=== PATIENT | male | born 1960 | race Caucasian/White ===

== ENCOUNTER 2024-04-28 14:27 | Inpatient (IN) | payer OTHER, SELFPAY ==
[2024-04-28] VITALS (24 sets, daily range): BP systolic 113–165; BP diastolic 49–86; PULSE 90–125; RESP 9–31; TEMP 36.8–39.5; O2SAT 90–100
--- NOTE | ~2024-04-28 | CT_ITS ---
CT abdomen pelvis w con Ordering provider: Pablo Cleary MD History: 63 years Male with . LLQ pain, Febrile . Comparison: None. Technique: CT abdomen and pelvis with IV and without oral contrast. Automated exposure control and it erative reconstruction technique were employed. The dose-length product was 380.56 mGy-cm. 100 mL Omn ipaque 350 was given IV. Findings: VISUALIZED LOWER CHEST: Dependent atelectatic changes. UPPER ABDOMINAL ORGANS: Liver: Fat infiltration. Mild hepatomegaly. Gallbladder: Possible cholelithiasis. Ultrasound evaluation advised. Spleen: Mild splenomegaly. Stomach/duodenum: Sliding hiatus hernia. Pancreas: Area of calcification is seen which is most likely vascular. Adrenals: Normal. Kidneys: Normal. PELVIC ORGANS: The bladder is normal. BOWEL AND MESENTERY: Colon: Diverticulitis seen at the junction of the descending colon with the sigmoid colon. No free ai r or collection is seen. Normal appendix. Small Bowel: Normal. No obstruction. Peritoneum/mesentery: No free air or free fluid. No mesenteric lymphadenopathy. RETROPERITONEUM: Mild atheromatous disease of the abdominal aorta. No retroperitoneal lymphadenopat hy. MUSCULOSKELETAL: Superficial soft tissues: The superficial soft tissues are normal. Bones: Age appropriate degenerative changes of the spine. IMPRESSION: 1. Diverticulitis at the junction of the descending colon with the sigmoid colon. 2. Sliding hiatus hernia. 3. Possible Cholelithiasis. Ultrasound evaluation advised. 4. Hepatomegaly with fat infiltration. Mild splenomegaly. Reviewed, dictated and finalized at location A. IMPRESSION: 1. Diverticulitis at the junction of the descending colon with the sigmoid col on. 2. Sliding hiatus hernia. 3. Possible Cholelithiasis. Ultrasound evaluation advised. 4. Hepatomegaly with fat infiltration. Mild splenomegaly.
--- NOTE | ~2024-04-28 | MR_ITS ---
EXAMINATION: MR MRCP wo/w con/w 3D wo ind DATE: 04/30/2024 14:04 INDICATION: Cholelithiasis. Bile duct dilatation. TECHNIQUE: Magnetic resonance imaging (MRI) of the abdomen was performed without and with 20 mL Multi Wen intravenous contrast. Sequences included coronal T2-weighted FS FSE, coronal T2-weighted FSE, a xial T1-weighted LAVA, coronal FS FIESTA, axial dual-echo T1-weighted SPGR, coronal lava-FLEX, sagitt al T2-weighted FSE, axial T2-weighted FSE, and axial DWI. Thick-slab T2-weighted FSE images were obta ined for magnetic resonance cholangiopancreatography (MRCP). Maximum intensity projection 3-D reconst ructions of the volumetric data were created by the technologist. Postcontrast sequences included cor onal LAVA-flex and time course of axial T1-weighted LAVA. COMPARISON: Abdomen ultrasound 04/29/2024, CT abdomen and pelvis 04/28/2024, 12/25/16 FINDINGS: ABDOMEN MRI: The visualized portions of the lung bases demonstrate bilateral patchy airspace opacitie s and smooth septal thickening. There is a small sliding hiatal hernia. The liver is normal. There is chronic mild splenomegaly, which may be secondary to obesity. The gallbladder, pancreas, adrenal gla nds, and kidneys are normal. There are no dilated loops of bowel. There are no pathologically enlarge d lymph nodes. There is no free intraperitoneal fluid. ABDOMEN MRCP: The common duct is normal and measures 6 mm. No choledocholithiasis. IMPRESSION: 1. Normal biliary tree. 2. Bilateral lung disease, worsened from 04/28/2024, likely pulmonary edema. Reviewed, dictated and finalized at location A.
--- NOTE | ~2024-04-28 | XR_ITS ---
EXAMINATION: XR chest 1V portable DATE: 04/30/2024 19:23 INDICATION: Shortness of breath TECHNIQUE: frontal view of the chest was obtained. COMPARISON: None FINDINGS: Diffuse increased interstitial pattern in the bilateral mid and lower lung zones with multiple periph eral Jessica B-lines at the lateral right mid to lower lung consistent with mild pulmonary edema. Numb er bandlike discoid atelectasis at the right midlung zone. No pleural effusion or pneumothorax. The c ardiomediastinal silhouette is within normal limits for AP technique. IMPRESSION: 1. Interstitial opacities in the bilateral mid and lower lung zones in favor mild pulmonary edema ove r pneumonia. Reviewed, dictated and finalized at location A. IMPRESSION: 1. Interstitial opacities in the bilateral mid and lower lung zones in favor mi ld pulmonary edema over pneumonia.
--- NOTE | ~2024-04-28 | US_ITS ---
EXAMINATION: US abdomen limited DATE: 04/29/2024 12:12 INDICATION: Cholelithiasis. TECHNIQUE: Multiple grayscale and Doppler ultrasound images of the abdomen were obtained. COMPARISON: CT abdomen and pelvis 04/28/2024 FINDINGS: The visualized portions of the head, body, and tail of the pancreas are normal. The liver i s normal without focal lesion. There is normal flow in main portal vein. The gallbladder is distended . No gallstones or gallbladder wall thickening. The common duct is dilated to 10 mm. IMPRESSION: 1. Gallbladder distention and common duct dilatation. No obstructing stone or mass identified. Consid er MRCP. Reviewed, dictated and finalized at location A. IMPRESSION: 1. Gallbladder distention and common duct dilatation. No obstructing stone or m ass identified. Consider MRCP.
[2024-04-28 14:44] LABS: Hematocrit 54.8 % (42.0-52.0); Hemoglobin 16.8 g/dL (14.0-18.0); Mean Corpuscular HGB Conc 30.7 g/dl (32-36); Mean Corpuscular Hemoglobin 25.4 pg (26-34); Mean Corpuscular Volume 82.9 fl (80-100); Mean Platelet Volume 9.6 fl (7.4-10.4); Platelet Count Result 128 k/mm3 (150-375); Red Blood Count 6.61 M/mm3 (4.6-6.20); Red Cell Distribution Width 24.1 % (11.5-14.5); White Blood Count 7.1 K/mm3 (4.5-10.0)
[2024-04-28 14:54] LABS: Alanine Aminotransferase 30 U/L (6-50); Albumin Level 4.8 g/dL (3.5-5.1); Alkaline Phosphatase 45 U/L (38-126); Anion Gap 12 mmol/L (4-12); Aspartate Amino Transferase 30 U/L (17-59); Bilirubin,Total 0.8 mg/dL (0.2-1.3); Blood Urea Nitrogen 38 mg/dL (9-20); Carbon Dioxide 28 mmol/L (22-30); Chloride 99 mmol/L (98-107); Estimated CRCL calculation 54 ml/min; Estimated Glomerular Filt Rate > 60; Glucose 103 mg/dL (65-110); Lipase 60 U/L (23-300); Potassium 4.3 mmol/L (3.4-5.0); Sodium 139 mmol/L (137-145)
[2024-04-28 15:13] LABS: Band Neutrophils Percent 6 % (0-6); Basophils Absolute Manual 0.07 K/mm3 (0.0-0.1); Basophils Percent Manual 1 % (0-1); Lymphocytes Absolute Manual 0.14 K/mm3 (1.1-4.5); Monocytes Absolute Manual 0.35 K/mm3 (0.1-0.90); Monocytes Percent Manual 5 % (3-9); Neutrophils Absolute Manual 6.53 K/mm3 (1.3-6.7); Neutrophils Percent Manual 86 % (46-73); Total Cells Counted 100
[2024-04-28 15:14] LABS: Platelet Estimate Decreased (Adequate); Schistocytes None Seen
[2024-04-28 15:16] LABS: Anisocytosis 3+; Hypochromasia 1+
[2024-04-28] MEDS: ONDANSETRON INJ 4 MG/2 ML VIAL IV PUSH ×2 (15:54→20:20)
[2024-04-28] MEDS: HYDROmorphone HCL INJ (*CRX) 1 MG/ML SYR 0.5 MG IV PUSH ×2 (15:58→20:20)
[2024-04-28] MEDS: KETOROLAC 15 MG/ML VIAL (*BKC) IV PUSH (15:58)
[2024-04-28] MEDS: SODIUM CHLORIDE 0.9% IV 1,000 ML 999 ML IV CONT ×2 (16:00→17:25)
[2024-04-28] MEDS: SODIUM CHLORIDE 0.9% IV 2,000 ML 999 ML IV CONT (16:46)
--- NOTE | 2024-04-28 17:01 | ED.GENADULT ---
HPI - General Adult General Chief complaint: Abdominal Pain Stated complaint: diverticulitis Time Seen by Provider: 04/28/24 15:34 History of Present Illness HPI narrative: This is a 63-year-old male with history of diverticulitis presenting ED with chief of abdominal pain. Pain started yesterday to 2am. Pain is sharp pain left quadrant that is nonradiating constant. Feels like previous episodes of diverticulitis. He has had nausea without vomiting. He has also had fevers and chills. Last BM was this morning. No chest pain difficulty breathing. This is the patient's 3rd episode of diverticulitis. Related Data Allergies Allergy/AdvReac Type Severity Reaction Status Date / Time ELVIA Inhibitors AdvReac Intermediate Cough Verified 03/04/24 08:27 PENDING SALE TO [facility] Past Medical History Medical History Dyslipidemia HTN (hypertension) Hyperglycemia Surgical History Surgical History History of back surgery Social History Social History Smoking packs per day: 1 Smoking cigarettes per day: 20.0 Smoking status: Unknown if ever smoked Tobacco type: cigarettes Alcohol intake: never Substance use: never Substance use type: does not use Lack of Transportation: No Lack of Food: Never True Current Housing: I Have Housing Concerned About Future Housing: No Difficulty Paying Gas/Electric Bills: No Difficulty Paying for Meds: No Currently Unemployed: No Difficulty w/ Childcare or Family Care: No Living arrangements: with family Occupation/Education: occupation Gender identity (if verbalized by the patient): Male Sexual Orientation (if Verbalized by the Patient): Straight or Heterosexual Exam Narrative: APPEARANCE: Patient appears ill, he has rigors and clammy skin Head: atraumatic. EYES: EOMI, NOSE: Atraumatic NECK: Trachea midline RESPIRATORY: No increased rate of breathing clear to auscultation CARDIOVASCULAR: RRR, ABDOMINAL: Tenderness to palpation left lower quadrant without guarding or rebound MUSCULOSKELETAl: No obvious deformities NEURO: Alert. Moving 4/4 extremities SKIN:: Warm, dry. Normal color PSYCHIATRIC: Normal affect Course Vital Signs Vital signs: Vital Signs Temperature 100.9 F H 04/28/24 14:33 Pulse Rate 121 H 04/28/24 14:33 Respiratory Rate 20 04/28/24 14:33 Blood Pressure 161/73 H 04/28/24 14:33 Pulse Oximetry 100 04/28/24 14:33 Temperature 103.1 F H 04/28/24 17:35 Pulse Rate 116 H 04/28/24 16:57 Respiratory Rate 18 04/28/24 16:57 Blood Pressure 165/86 H 04/28/24 16:57 Pulse Oximetry 23 L 04/28/24 16:57 Medical Decision Making MDM Narrative Medical decision making narrative: -Course: 63-year-old male presenting with left lower quadrant pain. CT showed uncomplicated diverticulitis. Patient is febrile and tachycardic. Patient meets sepsis criteria. Started on antibiotics and given fluid resuscitation, pain control, antipyretics and antiemetics. Patient will be admitted to the hospital for further management. -DDX includes but is not limited to: Diverticulitis, colitis, viral syndrome, appendicitis, UTI -Co-morbidities complicating care: Hypertension -Independent interpretation of studies: White count 7.1. Lactic pending Metabolic panel normal. Urine showed dehydration but no signs of infection. CT with acute uncomplicated diverticulitis. -Discussion of Management/Consultants: Zaira -Interventions: 3 L normal saline, 150 cc/hour LR, ceftriaxone, Flagyl, Toradol, Tylenol, Zofran -Shared decision making / Disposition: Admitted Vital Signs Vital Signs: Vital Signs Temperature 100.9 F H 04/28/24 14:33 Pulse Rate 121 H 04/28/24 14:33 Respiratory Rate 20 04/28/24 14:33 Blood Pressure 161/73 H 04/28/24 14:33 Pulse Oximetry 100 04/28/24 14:33
[2024-04-28 17:04] LABS: Add Urine Microscopic? YES; Appearance Urine Clear (Clear); Bacteria Urine None Seen /hpf; Bilirubin Urine Negative (Negative); Blood Urine Negative (Negative); Color Urine Yellow (Yellow); Glucose Urine UA Negative (Negative); Ketones Urine Negative (Negative); Leukocyte Esterase Ur Negative LEU/UL (Negative); Nitrate Urine Negative (Negative); Non Pathogenic Casts 0-2; Protein Urine 2+ mg/dL (Negative); RBC Urine 0-2 /hpf (0-2); Specific Grav Ur > 1.045 (1.001-1.035); Squamous Epithelial Cell Urine None Seen /hpf (Few); WBC Urine 0-5 /hpf (0-3)
[2024-04-28] MEDS: SODIUM CHLORIDE 0.9% IV 1,000 ML 1000 ML IV CONT (17:07)
[2024-04-28 17:24] LABS: Lactic Acid Reflex 1.5 mmol/L (0.7-2.0)
[2024-04-28] MEDS: ACETAMINOPHEN 500 MG TABLET 1000 MG PO (17:42)
[2024-04-28] MEDS: metroNIDAZOLE 500 MG/ISO 100ML 500 MG/100 ML BAG 100 MG IVPB (17:44)
--- NOTE | 2024-04-28 18:40 | ADMGEN ---
This patient, Josh Price, was admitted to Medical Room 243-01. Patient/family oriented to hospital policies and general routines including ID bracelet, bed and alarms, visiting hours, pain management, procedures, bathroom and other care routines, personal items, smoking policy, room service/diet, and visiting hours. Information on how to activate the Rapid Response Team has been discussed. Patient/Family are encouraged to report perceived risks to care and to ask questions if they do not understand what they are told or what they should do.
--- NOTE | 2024-04-28 18:40 | PM.IMHP ---
H&P: HPI History of Present Illness Date/Time: 04/28/24 18:40 Chief Complaint: Abdominal pain. Narrative: This is a pleasant 63-year-old male with history of diverticulitis and hypertension who presented to the emergency department via private vehicle for evaluation of abdominal pain. The patient provides the following history. Yesterday morning at about 02:00 he developed nonradiating, sharp and shooting pain in the left lower quadrant associated with nausea, vomiting, fevers, and chills. He has had poor oral intake over the last 24 hours. He reports having normal bowel movement this morning. He has not noticed any significant alleviating factors. Pain is worse with movement and palpation. Symptoms are similar to 2 prior episodes of diverticulitis. He denies blood in mucus in the stool, dysuria, and hematuria. In the ED: Temperature was a size 101.4? F. he has been in a sinus tachycardia with rates in the low 100s to 120s. Blood pressures have been stable. Labs were significant for WBC count of 7.1, hemoglobin 16.8, hematocrit 54.8%, platelet 128, BUN 38, creatinine 1.20. CT of the abdomen pelvis showed diverticulitis at the junction of the descending colon with the sigmoid colon, sliding hiatus hernia, possible cholelithiasis, and hepatomegaly with fatty infiltration and mild splenomegaly. He was given a 2 L IV fluid bolus, ceftriaxone, and metronidazole and he is being admitted in this setting for further treatment. Review of Systems Review of Systems: 12 systems were reviewed and are negative except for as per HPI. FOR[facility]LY [facility] Past Medical History Medical History Dyslipidemia Hypertension Surgical History Surgical History History of back surgery Social History Social History (Updated 04/28/24 @ 20:39 by Marya Alanis PA-C) Social History: Healthcare power of deputy commonwealth's attorney: Demarco Curtis, daughter. Other contacts: Lala Price (spouse) and Nolberto Price (son). Code status: Full code. Smoking packs per day: 1 Smoking cigarettes per day: 20.0 Smoking status: Former smoker Tobacco type: cigarettes Alcohol intake: never Substance use: never Substance use type: does not use Do You Feel Safe in your Home?: Yes Lack of Transportation: No Lack of Food: Never True Current Housing: I Have Housing Concerned About Future Housing: No Difficulty Paying Gas/Electric Bills: No Difficulty Paying for Meds: No Currently Unemployed: No Education: High School Diploma/GED Difficulty w/ Childcare or Family Care: No Additional living arrangements comments: Lives with in [place]. Spiritual care concerns: No Meds Home Medications and Allergies Home Medications Medication Instructions Recorded Confirmed Type carvedilol 12.5 mg tablet (Coreg) 12.5 mg PO Q12H #180 tabs 03/04/24 04/28/24 Rx Allergies Allergy/AdvReac Type Severity Reaction Status Date / Time ELVIA Inhibitors AdvReac Intermediate Cough Verified 03/04/24 08:27 Vital Signs Vital Signs - 24 hr 04/28/24 14:33 04/28/24 16:04 04/28/24 16:57 Temperature 100.9 F H 101.4 F H Pulse Rate 121 H 116 H Respiratory Rate 20 18 Blood Pressure 161/73 H 165/86 H Pulse Oximetry 100 97 04/28/24 17:35 04/28/24 18:07 04/28/24 15:28 Temperature 103.1 F H Pulse Rate 120 H 106 H Respiratory Rate 23 H 9 L Blood Pressure 127/69 Pulse Oximetry 99 04/28/24 15:30 04/28/24 15:45 04/28/24 16:18 Temperature Pulse Rate 106 H 123 H 121 H Respiratory Rate 23 H 25 H 24 H Blood Pressure Pulse Oximetry 04/28/24 16:32 04/28/24 16:45 04/28/24 16:46 Temperature Pulse Rate 115 H 115 H 116 H Respiratory Rate 20 28 H 21 H Blood Pressure 165/86 H Pulse Oximetry 04/28/24 17:00 04/28/24 17:02 04/28/24 17:15 Temperature Pulse Rate 113 H 114 H 120 H Respiratory Rate 28 H 24 H 31 H
[2024-04-28 18:53] LABS: Influenza A QL RT-PCR Negative (Negative); Influenza B QL RT-PCR Negative (Negative); RSV RNA, RT-PCR Negative (Negative); SARS-CoV-2 RNA PCR Negative (Negative)
[2024-04-28] MEDS: LACTATED RINGERS 1,000 ML 150 ML IV CONT ×2 (19:00→20:20)
[2024-04-28] MEDS: carvediloL 12.5 MG TABLET PO (20:20)
[2024-04-29] VITALS (9 sets, daily range): BP systolic 92–121; BP diastolic 42–61; PULSE 81–94; RESP 18; TEMP 36.4–36.9; O2SAT 91–98
[2024-04-29] MEDS: HYDROmorphone HCL INJ (*CRX) 1 MG/ML SYR 0.5 MG IV PUSH ×6 (01:41→22:09)
[2024-04-29] MEDS: metroNIDAZOLE 500 MG/ISO 100ML 500 MG/100 ML BAG 100 MG IVPB ×3 (01:41→17:01)
[2024-04-29] MEDS: LACTATED RINGERS 1,000 ML 150 ML IV CONT ×3 (02:48→20:40)
[2024-04-29 05:47] LABS: Hematocrit 48.3 % (42.0-52.0); Hemoglobin 14.6 g/dL (14.0-18.0); Immature Platelet Fraction Pct 1.9 % (0.9-11.2); Mean Corpuscular HGB Conc 30.2 g/dl (32-36); Mean Corpuscular Hemoglobin 25.3 pg (26-34); Mean Corpuscular Volume 83.7 fl (80-100); Mean Platelet Volume 9.9 fl (7.4-10.4); Platelet Count Result 98 k/mm3 (150-375); Red Blood Count 5.77 M/mm3 (4.6-6.20); White Blood Count 2.8 K/mm3 (4.5-10.0)
[2024-04-29 06:01] LABS: Anion Gap 9 mmol/L (4-12); Blood Urea Nitrogen 31 mg/dL (9-20); Calcium 7.5 mg/dL (8.4-10.2); Carbon Dioxide 28 mmol/L (22-30); Chloride 101 mmol/L (98-107); Estimated CRCL calculation 59 ml/min; Estimated Glomerular Filt Rate > 60; Glucose 110 mg/dL (65-110); Magnesium 1.5 mg/dL (1.6-2.3); Potassium 4.4 mmol/L (3.4-5.0); Sodium 138 mmol/L (137-145)
[2024-04-29] MEDS: ONDANSETRON INJ 4 MG/2 ML VIAL IV PUSH (06:13)
--- NOTE | 2024-04-29 07:06 | P.PNIM_ITS ---
Progress Note: A&P Assessment and Plan (1) Sepsis: Code(s): A41.9 - Sepsis, unspecified organism Status: Acute (2) Diverticulitis: Code(s): K57.92 - Diverticulitis of intestine, part unspecified, without perforation or abscess without bleeding Status: Acute (3) Dehydration: Code(s): E86.0 - Dehydration Status: Acute (4) Hypertension: Code(s): I10 - Essential (primary) hypertension Status: Acute (5) Thrombocytopenia: Code(s): D69.6 - Thrombocytopenia, unspecified Status: Acute Plan Sepsis: * Fever, tachycardia, diverticulitis * IV Fluids * Rocephin/Flagyl * Lactic WNL * CT ABD showing diverticulitis without perforation Diverticulitis: * CT ABD showing diverticulitis without perforation * IV Fluids * NPO with chips advance as tolerated * pain control * Antiemetics * CT did show possible cholelithiasis ultrasound pending * Rocephin/Flagyl * PPI BID Thrombocytopenia * 128 POA * 98 04/29/2024 * monitor * No medication * Likely secondary to infection * TSH pending HX HTN: holding carvedilol has been hypotensive Code status: Full code per patient DVT prophylaxis: SCD Stress ulcer prophylaxis: Protonix 40 BID PT/OT notes: Ambulatory Disposition: Admitted to the medical unit for further treatment of diverticulitis patient is ambulatory and plan will be to discharge home when medically stable. Time Spent With Patient Time with patient: 15 - 25 minutes Subjective Date/time seen: 04/29/24 07:06 Interval history: Admission: This is a pleasant 63-year-old male with history of diverticulitis and hypertension who presented to the emergency department via private vehicle for evaluation of abdominal pain. The patient provides the following history. Yesterday morning at about 02:00 he developed nonradiating, sharp and shooting pain in the left lower quadrant associated with nausea, vomiting, fevers, and chills. He has had poor oral intake over the last 24 hours. He reports having normal bowel movement this morning. He has not noticed any significant alleviating factors. Pain is worse with movement and palpation. Symptoms are similar to 2 prior episodes of diverticulitis. He denies blood in mucus in the stool, dysuria, and hematuria. 04/29/2024: Assumed Care Patient still with ABD pain 7/10 LLQ, WBC 2.8, remained afebrile overnight. Will continue with NPO utnil dinner tonight and attempt clear liquid. Review of Systems Review of Systems: 12 systems were reviewed and are negativ e except for as per HPI. All systems reviewed & are unremarkable except as noted in HPI and below Exam Narrative: Physical Exam: * GENERAL: Alert and oriented x 3. No acute distress. * EYES: EOMI. No scleral icterus. PERRLA. * HEENT: Moist mucous membranes. * LUNGS: Clear to auscultation bilaterally. No accessory muscle use. * CARDIOVASCULAR: Regular rate and rhythm. No murmur. No JVD. S1-S2 * ABDOMEN: Soft, tenderness LLQ and non-distended. No palpable masses. * EXTREMITIES: No edema. Non-tender * SKIN: No rashes or lesions. Skin warm, dry. * NEUROLOGIC: No focal neurological deficits. CN II-XII grossly intact * PSYCHIATRIC: Appropriate mood and affect. Good judgement and insight. No visual or auditory hallucinations. No suicidal or homicidal ideation. Objective Data Vit
--- NOTE | 2024-04-29 07:06 | PM.IMPN ---
Progress Note: A&P Assessment and Plan (1) Sepsis: Code(s): A41.9 - Sepsis, unspecified organism Status: Acute (2) Diverticulitis: Code(s): K57.92 - Diverticulitis of intestine, part unspecified, without perforation or abscess without bleeding Status: Acute (3) Dehydration: Code(s): E86.0 - Dehydration Status: Acute (4) Hypertension: Code(s): I10 - Essential (primary) hypertension Status: Acute (5) Thrombocytopenia: Code(s): D69.6 - Thrombocytopenia, unspecified Status: Acute Plan Sepsis: Fever, tachycardia, diverticulitis IV Fluids Rocephin/Flagyl Lactic WNL CT ABD showing diverticulitis without perforation Diverticulitis: CT ABD showing diverticulitis without perforation IV Fluids NPO with chips advance as tolerated pain control Antiemetics CT did show possible cholelithiasis ultrasound pending Rocephin/Flagyl PPI BID Thrombocytopenia 128 POA 98 04/29/2024 monitor No medication Likely secondary to infection TSH pending HX HTN: holding carvedilol has been hypotensive Code status: Full code per patient DVT prophylaxis: SCD Stress ulcer prophylaxis: Protonix 40 BID PT/OT notes: Ambulatory Disposition: Admitted to the medical unit for further treatment of diverticulitis patient is ambulatory and plan will be to discharge home when medically stable. Time Spent With Patient Time with patient: 15 - 25 minutes Subjective Date/time seen: 04/29/24 07:06 Interval history: Admission: This is a pleasant 63-year-old male with history of diverticulitis and hypertension who presented to the emergency department via private vehicle for evaluation of abdominal pain. The patient provides the following history. Yesterday morning at about 02:00 he developed nonradiating, sharp and shooting pain in the left lower quadrant associated with nausea, vomiting, fevers, and chills. He has had poor oral intake over the last 24 hours. He reports having normal bowel movement this morning. He has not noticed any significant alleviating factors. Pain is worse with movement and palpation. Symptoms are similar to 2 prior episodes of diverticulitis. He denies blood in mucus in the stool, dysuria, and hematuria. 04/29/2024: Assumed Care Patient still with ABD pain 7/10 LLQ, WBC 2.8, remained afebrile overnight. Will continue with NPO utnil dinner tonight and attempt clear liquid. Review of Systems Review of Systems: 12 systems were reviewed and are negative except for as per HPI. All systems reviewed & are unremarkable except as noted in HPI and below Exam Narrative: Physical Exam: GENERAL: Alert and oriented x 3. No acute distress. EYES: EOMI. No scleral icterus. PERRLA. HEENT: Moist mucous membranes. LUNGS: Clear to auscultation bilaterally. No accessory muscle use. CARDIOVASCULAR: Regular rate and rhythm. No murmur. No JVD. S1-S2 ABDOMEN: Soft, tenderness LLQ and non-distended. No palpable masses. EXTREMITIES: No edema. Non-tender SKIN: No rashes or lesions. Skin warm, dry. NEUROLOGIC: No focal neurological deficits. CN II-XII grossly intact PSYCHIATRIC: Appropriate mood and affect. Good judgement and insight. No visual or auditory hallucinations. No suicidal or homicidal ideation. Objective Data Vital Signs Vital Signs: Vital Signs - 24 hr 04/28/24 14:33 04/28/24 16:04 04/28/24 16:57 Temperature 100.9 F H 101.4 F H Pulse Rate 121 H 116 H Respiratory Rate 20 18 Blood Pressure 161/73 H 165/86 H Pulse Oximetry 100 97 Oxygen Delivery 04/28/24 17:35 04/28/24 18:07 04/28/24 15:28 Temperature 103.1 F H Pulse Rate 120 H 106 H Respiratory Rate 23 H 9 L Blood Pressure 127/69 Pulse Oximetry 99 Oxygen Delivery 04/28/24 15:30 04/28/24 15:45 04/28/24 16:18 Temperature Pulse Rate 106 H 123 H 121 H Respiratory Rate 23 H 25 H 24 H Blood Pressure Pulse Ox
[2024-04-29] MEDS: MAGNESIUM SULF 2 GM/WATER 50ML 2 GM/50 ML BAG IVPB (08:13)
[2024-04-29] MEDS: PANTOPRAZOLE SODIUM IV 40 MG VIAL IV PUSH ×2 (08:13→20:42)
[2024-04-29] MEDS: carvediloL 12.5 MG TABLET PO ×2 (08:14→20:41)
[2024-04-29] MEDS: ACETAMINOPHEN 325 MG TABLET 650 MG PO ×2 (08:15→19:13)
[2024-04-29] MEDS: CALCIUM CARBONATE (TUMS) 500 MG (200 MG ELEMENTAL) PO (19:13)
[2024-04-30] VITALS (13 sets, daily range): BP systolic 128–156; BP diastolic 64–83; PULSE 82–95; RESP 12–20; TEMP 36.2–36.9; O2SAT 93–96
[2024-04-30] MEDS: metroNIDAZOLE 500 MG/ISO 100ML 500 MG/100 ML BAG 100 MG IVPB ×3 (01:46→18:27)
[2024-04-30] MEDS: HYDROmorphone HCL INJ (*CRX) 1 MG/ML SYR 0.5 MG IV PUSH ×2 (01:46→18:34)
[2024-04-30] MEDS: LACTATED RINGERS 1,000 ML 150 ML IV CONT ×2 (04:24→13:00)
[2024-04-30 04:40] LABS: Hematocrit 41.7 % (42.0-52.0); Hemoglobin 12.8 g/dL (14.0-18.0); Immature Platelet Fraction Pct 2.1 % (0.9-11.2); Mean Corpuscular HGB Conc 30.7 g/dl (32-36); Mean Corpuscular Hemoglobin 25.3 pg (26-34); Mean Corpuscular Volume 82.4 fl (80-100); Mean Platelet Volume 9.7 fl (7.4-10.4); Red Blood Count 5.06 M/mm3 (4.6-6.20); Red Cell Distribution Width 23.2 % (11.5-14.5); White Blood Count 3.2 K/mm3 (4.5-10.0)
[2024-04-30 05:01] LABS: Alanine Aminotransferase 51 U/L (6-50); Alkaline Phosphatase 33 U/L (38-126); Anion Gap 7 mmol/L (4-12); Aspartate Amino Transferase 45 U/L (17-59); Bilirubin,Total 0.6 mg/dL (0.2-1.3); Blood Urea Nitrogen 20 mg/dL (9-20); Carbon Dioxide 27 mmol/L (22-30); Chloride 98 mmol/L (98-107); Estimated CRCL calculation 78 ml/min; Estimated Glomerular Filt Rate > 60; Glucose 102 mg/dL (65-110); Sodium 132 mmol/L (137-145)
[2024-04-30 05:25] LABS: Platelet Count Result 93 k/mm3 (150-375)
[2024-04-30 05:32] LABS: Band Neutrophils Percent 8 % (0-6); Lymphocytes Absolute Manual 0.12 K/mm3 (1.1-4.5); Monocytes Absolute Manual 0.12 K/mm3 (0.1-0.90); Monocytes Percent Manual 4 % (3-9); Neutrophils Absolute Manual 2.94 K/mm3 (1.3-6.7); Neutrophils Percent Manual 84 % (46-73); Total Cells Counted 50
[2024-04-30 05:33] LABS: Anisocytosis 1+; Hypochromasia 1+; Microcytosis 1+ (NORMAL); Ovalocytes 1+; Platelet Estimate Decreased (Adequate); Schistocytes None Seen; Smudge Cells PRESENT
[2024-04-30] MEDS: ACETAMINOPHEN 325 MG TABLET 650 MG PO ×3 (06:29→20:33)
--- NOTE | 2024-04-30 07:07 | P.PNIM_ITS ---
Progress Note: A&P Assessment and Plan (1) Sepsis: Code(s): A41.9 - Sepsis, unspecified organism Status: Acute (2) Diverticulitis: Code(s): K57.92 - Diverticulitis of intestine, part unspecified, without perforation or abscess without bleeding Status: Acute (3) Dehydration: Code(s): E86.0 - Dehydration Status: Acute (4) Hypertension: Code(s): I10 - Essential (primary) hypertension Status: Acute (5) Thrombocytopenia: Code(s): D69.6 - Thrombocytopenia, unspecified Status: Acute Plan Cholelithiasis * US showing gallbladder distention and common bile duct dilation * Surgery consulted * No GI * MRCP ordered * if patient needs ERCP will need transferred Sepsis: Resolved * Fever, tachycardia, diverticulitis * IV Fluids * Rocephin/Flagyl * Lactic WNL * CT ABD showing diverticulitis without perforation Diverticulitis: * CT ABD showing diverticulitis without perforation * IV Fluids * NPO with chips advance as tolerated * pain control * Antiemetics * CT did show possible cholelithiasis ultrasound pending * Rocephin/Flagyl * PPI BID 04/30/2024: Thrombocytopenia * 128 POA * 98 04/29/2024 * monitor * No medication * Likely secondary to infection * TSH pending HX HTN: holding carvedilol has been hypotensive Code status: Full code per patient DVT prophylaxis: SCD Stress ulcer prophylaxis: Protonix 40 BID PT/OT notes: Ambulatory Disposition: Admitted to the medical unit for further treatment of diverticulitis, US with gallbladder distention and common bile duct dilation MRCP pending. Patient is ambulatory and plan will be to discharge home when medically stable. Time Spent With Patient Time with patient: 15 - 25 minutes Subjective Date/time seen: 04/30/24 07:07 Interval history: Admission: This is a pleasant 63-year-old male with history of diverticulitis and hypertension who presented to the emergency department via private vehicle for evaluation of abdominal pain. The patient provides the following history. Yesterday morning at about 02:00 he developed nonradiating, sharp and shooting pain in the left lower quadrant associated with nausea, vomiting, fevers, and chills. He has had poor oral intake over the last 24 hours. He reports having normal bowel movement this morning. He has not noticed any significant geovanny viating factors. Pain is worse with movement and palpation. Symptoms are similar to 2 prior episodes of diverticulitis. He denies blood in mucus in the stool, dysuria, and hematuria. 04/29/2024: Assumed Care Patient still with ABD pain 7/10 LLQ, WBC 2.8, remained afebrile overnight. Will continue with NPO utnil dinner tonight and attempt clear liquid. 04/30/2024: US showing gallbladder distention and common bile duct dilation, consult placed to Surgery no GI patient will likely need MRCP for further evaluation. Patient still with ABD tenderness to LLQ and RUQ, not tolerating liquids well and reports chills and body aches. Review of Systems Review of Systems: 12 systems were reviewed and are negativ e except for as per HPI. All systems reviewed & are unremarkable except as noted in HPI and below Exam Narrative: Physical Exam: * GENERAL: Alert and oriented x 3. No acute distress. * EYES: EOMI. No scleral icterus. PERRLA. * HEENT: [place]
--- NOTE | 2024-04-30 07:07 | PM.IMPN ---
Progress Note: A&P Assessment and Plan (1) Sepsis: Code(s): A41.9 - Sepsis, unspecified organism Status: Acute (2) Diverticulitis: Code(s): K57.92 - Diverticulitis of intestine, part unspecified, without perforation or abscess without bleeding Status: Acute (3) Dehydration: Code(s): E86.0 - Dehydration Status: Acute (4) Hypertension: Code(s): I10 - Essential (primary) hypertension Status: Acute (5) Thrombocytopenia: Code(s): D69.6 - Thrombocytopenia, unspecified Status: Acute Plan Cholelithiasis US showing gallbladder distention and common bile duct dilation Surgery consulted No GI MRCP ordered if patient needs ERCP will need transferred Sepsis: Resolved Fever, tachycardia, diverticulitis IV Fluids Rocephin/Flagyl Lactic WNL CT ABD showing diverticulitis without perforation Diverticulitis: CT ABD showing diverticulitis without perforation IV Fluids NPO with chips advance as tolerated pain control Antiemetics CT did show possible cholelithiasis ultrasound pending Rocephin/Flagyl PPI BID 04/30/2024: Thrombocytopenia 128 POA 98 04/29/2024 monitor No medication Likely secondary to infection TSH pending HX HTN: holding carvedilol has been hypotensive Code status: Full code per patient DVT prophylaxis: SCD Stress ulcer prophylaxis: Protonix 40 BID PT/OT notes: Ambulatory Disposition: Admitted to the medical unit for further treatment of diverticulitis, US with gallbladder distention and common bile duct dilation MRCP pending. Patient is ambulatory and plan will be to discharge home when medically stable. Time Spent With Patient Time with patient: 15 - 25 minutes Subjective Date/time seen: 04/30/24 07:07 Interval history: Admission: This is a pleasant 63-year-old male with history of diverticulitis and hypertension who presented to the emergency department via private vehicle for evaluation of abdominal pain. The patient provides the following history. Yesterday morning at about 02:00 he developed nonradiating, sharp and shooting pain in the left lower quadrant associated with nausea, vomiting, fevers, and chills. He has had poor oral intake over the last 24 hours. He reports having normal bowel movement this morning. He has not noticed any significant alleviating factors. Pain is worse with movement and palpation. Symptoms are similar to 2 prior episodes of diverticulitis. He denies blood in mucus in the stool, dysuria, and hematuria. 04/29/2024: Assumed Care Patient still with ABD pain 7/10 LLQ, WBC 2.8, remained afebrile overnight. Will continue with NPO utnil dinner tonight and attempt clear liquid. 04/30/2024: US showing gallbladder distention and common bile duct dilation, consult placed to Surgery no GI patient will likely need MRCP for further evaluation. Patient still with ABD tenderness to LLQ and RUQ, not tolerating liquids well and reports chills and body aches. Review of Systems Review of Systems: 12 systems were reviewed and are negative except for as per HPI. All systems reviewed & are unremarkable except as noted in HPI and below Exam Narrative: Physical Exam: GENERAL: Alert and oriented x 3. No acute distress. EYES: EOMI. No scleral icterus. PERRLA. HEENT: Moist mucous membranes. LUNGS: Clear to auscultation bilaterally. No accessory muscle use. CARDIOVASCULAR: Regular rate and rhythm. No murmur. No JVD. S1-S2 ABDOMEN: Soft, tenderness LLQ and non-distended. No palpable masses. EXTREMITIES: No edema. Non-tender SKIN: No rashes or lesions. Skin warm, dry. NEUROLOGIC: No focal neurological deficits. CN II-XII grossly intact PSYCHIATRIC: Appropriate mood and affect. Good judgement and insight. No visual or auditory hallucinations. No suicidal or homicidal ideation. Objective Data Vital Signs Vital Signs: Vital Signs - 24 hr
[2024-04-30] MEDS: PANTOPRAZOLE SODIUM IV 40 MG VIAL IV PUSH (09:02)
[2024-04-30] MEDS: carvediloL 12.5 MG TABLET PO ×2 (09:02→20:34)
[2024-04-30] MEDS: KETOROLAC 30 MG/ML VIAL (*BKC) IV PUSH (09:48)
--- NOTE | 2024-04-30 12:00 | PC.NURSE ---
pt taken down for MRCP
--- NOTE | 2024-04-30 12:35 | PC.NURSE ---
pt returned from [facility], was unsuccessful in completing due to anxiety
[2024-04-30] MEDS: LORazepam INJ (*CRX) 2 MG/ML VIAL 1 MG IV PUSH ×2 (13:11→20:35)
--- NOTE | 2024-04-30 13:16 | PC.NURSE ---
PT GOING DOWN FOR MRCP
--- NOTE | 2024-04-30 14:07 | PC.NURSE ---
pt returned to room from [facility]
--- NOTE | 2024-04-30 16:40 | PM.CNGS ---
Assessment and Plan Assessment and plan (1) Diverticulitis: Code(s): K57.92 - Diverticulitis of intestine, part unspecified, without perforation or abscess without bleeding Status: Acute Assessment and Plan: This is patient's 3rd episode of acute diverticulitis. However, his other 2 episodes, were 30 years ago and over 10 years ago. I explained the pathophysiology of acute diverticulitis. I explained that sometimes acute diverticulitis does not resolve with bowel rest and antibiotics. In those cases, surgery may be required during the acute infection. This is certainly unusual but if necessary often involves a temporary colostomy which requires additional surgery to restore intestinal continuity. I doubt patient will require this on this admission. I also explained to him that diverticulitis can be cured by elective sigmoidectomy which can be done laparoscopically. He has had a colonoscopy but thinks it is about 7 years ago. He had in [place]. Patient certainly feels better than he did but does not appear to be back to his usual state of health. I will go ahead and advance him to full liquids and start getting him up in the chair and walking in the room. He will need to go home on a low-fiber diet and I will be happy to see him in 2 weeks to follow up and assist in any further management. I did explain that after discharge, he probably should avoid popcorn, peanuts in the shell, and eating seeds such as sunflower seeds or pumpkin seeds. Thank you for asking me to see this patient in consultation. I will follow along with you. (2) Biliary tract imaging abnormality: Code(s): R93.2 - Abnormal findings on diagnostic imaging of liver and biliary tract Status: Acute Assessment and Plan: No gallstones and no symptoms of biliary disease. No further imaging, labs, or intervention are needed. (3) Lymphopenia: Code(s): D72.810 - Lymphocytopenia Status: Acute Assessment and Plan: White blood cell count on admission was 7100 but since then he has had neutropenia. Differential shows specifically lymphopenia. This may simply be due to his current illness but the presence of smudge cells on his differential can be associated with CLL. I discussed the abnormalities with the patient and his . I do not feel anything needs to be done at this time but I would recheck CBC with manual diff at his 2 week office visit and if still abnormal, refer to case fitter. (4) Thrombocytopenia: Code(s): D69.6 - Thrombocytopenia, unspecified Status: Acute Assessment and Plan: Low platelet count on admission of 128,000. This has decreased but patient has been receiving 150 cc/hour of IV fluids ever since admission. I think the decrease since admission is most likely dilutional. The initial low platelet count could also be due to his current infection. History of Present Illness Consult details Consult date: 04/30/24 Reason for consult: abdominal pain Requesting physician: Eliz Kamara, WHITNEY Narrative: Patient is a 63-year-old man who awakened to urinate about 3:00 a.m. on 04/28/2024. At that time he started experiencing left lower quadrant abdominal pain as well as severe chills. He went back to bed and covered up but still remained very cold with chilling. His pain was persistent as well. He eventually went to the emergency room with his . His pain was reminiscent of 2 other episodes of diverticulitis he has had in his life. The 1st episode was 30 years ago and did require a brief hospitalization. The 2nd episode was at least 10 years ago and was treated as an outpatient after emergency room visit. Patient also reports eating large amounts of popcorn every night for at least the 5 days prior to the onset of his illness and coming to the emergency room. When he came to the emergency room he was noted to have a fever as high as 103 with tachycardia. His last previous bowel movemen
[2024-04-30] MEDS: FUROSEMIDE INJ 40 MG/4 ML VIAL IV PUSH (19:12)
[2024-04-30] MEDS: PANTOPRAZOLE 40 MG TABLET PO (20:34)
[2024-04-30] MEDS: traZODone HCL 50 MG TABLET PO (20:34)
[2024-05-01] VITALS: BP 132/69; PULSE 92; PULSE 94; RESP 18; TEMP 36.9; O2SAT 90
[2024-05-01] MEDS: metroNIDAZOLE 500 MG/ISO 100ML 500 MG/100 ML BAG 100 MG IVPB ×2 (02:01→09:33)
[2024-05-01] MEDS: ACETAMINOPHEN 325 MG TABLET 650 MG PO ×2 (02:03→09:37)
[2024-05-01] MEDS: LORazepam INJ (*CRX) 2 MG/ML VIAL 1 MG IV PUSH (02:05)
[2024-05-01 04:00] VITALS: BP 124/60; PULSE 84; PULSE 97; RESP 18; TEMP 36.7; O2SAT 90
[2024-05-01 07:27] LABS: Alanine Aminotransferase 41 U/L (6-50); Albumin Level 3.5 g/dL (3.5-5.1); Alkaline Phosphatase 36 U/L (38-126); Anion Gap 7 mmol/L (4-12); Aspartate Amino Transferase 41 U/L (17-59); Bilirubin,Total 0.6 mg/dL (0.2-1.3); Blood Urea Nitrogen 17 mg/dL (9-20); Carbon Dioxide 30 mmol/L (22-30); Chloride 96 mmol/L (98-107); Estimated CRCL calculation 65 ml/min; Estimated Glomerular Filt Rate > 60; Glucose 102 mg/dL (65-110); Potassium 3.7 mmol/L (3.4-5.0); Sodium 133 mmol/L (137-145)
[2024-05-01 07:40] LABS: Basophils Percent Auto 0.3 % (0.2-1.2); Eosinophils Percent Auto 0.3 % (0-4.4); Hematocrit 44.4 % (42.0-52.0); Hemoglobin 13.8 g/dL (14.0-18.0); Immature Granulocyte Absolute 0.01 K/mm3 (0.00-0.031); Immature Granulocyte Percent A 0.3 % (0-0.5); Lymphocytes Percent Auto 11.6 % (18.3-44.2); Mean Corpuscular HGB Conc 31.1 g/dl (32-36); Mean Corpuscular Hemoglobin 25.3 pg (26-34); Mean Corpuscular Volume 81.3 fl (80-100); Mean Platelet Volume 9.5 fl (7.4-10.4); Monocytes Absolute Auto 0.3 K/mm3 (0.1-0.6); Monocytes Percent Auto 7.2 % (2.6-8.5); Neutrophils Absolute Auto 2.8 K/mm3 (1.3-6.7); Neutrophils Percent Auto 80.3 % (45.5-73.1); Platelet Count Result 107 k/mm3 (150-375); Red Blood Count 5.46 M/mm3 (4.6-6.20); White Blood Count 3.5 K/mm3 (4.5-10.0)
[2024-05-01 08:44] LABS: Magnesium 1.8 mg/dL (1.6-2.3)
[2024-05-01 09:33] VITALS: PULSE 84
[2024-05-01] MEDS: PANTOPRAZOLE 40 MG TABLET PO (09:33)
[2024-05-01] MEDS: carvediloL 12.5 MG TABLET PO (09:33)
--- NOTE | 2024-05-01 11:55 | PM.PNGS ---
Progress Note: A&P Assessment and Plan (1) Diverticulitis: Code(s): K57.92 - Diverticulitis of intestine, part unspecified, without perforation or abscess without bleeding Status: Acute Assessment and Plan: much improved from yesterday. Abdomen completely nontender. Okay from surgical standpoint to discharge. I will see him in my office in 2-3 weeks. Will give him information regarding low-fiber diet. Home on oral antibiotics for a few more days. I discussed with him he will need a colonoscopy in about a month. He is thinking he may wish to have sigmoidectomy electively which can certainly be done. (2) Lymphopenia: Code(s): D72.810 - Lymphocytopenia Status: Acute Assessment and Plan: Persists on today's CBC with differential. Will recheck in about 10 days. If persists, will likely refer to hematology. Subjective Subjective Date/Time Seen: 05/01/24 11:55 Patient reports: feels better, pain is less (Abdominal pain completely gone) and afebrile Interval history: feels much better today. Wants to go home. Review of Systems Review of Systems: All systems reviewed & are unremarkable except as noted in HPI and below ( HPI) Exam Const: General: comfortable and no acute distress Orientation/consciousness: patient oriented x3 GI: Inspection: non-distended and no scars GI Palp: No abdominal tenderness, Yes Soft to palpation, No Tenderness to palpation present (GI), No Guarding due to palpation present (GI), No Hernia present, No Palpable mass present and No Rebound tenderness present Neuro: General: patient oriented x3 and no focal motor deficits Extrem: General: no calf tenderness and no edema Psych: Affect: normal affect Insight: Good insight present (Psych) Judgement: Good judgement present (Psych) Objective Data Vital Signs Vital Signs: Vital Signs - 24 hr 04/30/24 12:57 04/30/24 15:54 04/30/24 16:00 Temperature 36.8 C Pulse Rate 84 83 86 Respiratory Rate 20 Blood Pressure 156/83 H Pulse Oximetry 93 Oxygen Delivery 04/30/24 18:43 04/30/24 20:00 04/30/24 20:34 Temperature 36.4 C L Pulse Rate 95 95 Respiratory Rate 18 Blood Pressure 156/78 H Pulse Oximetry 95 93 Oxygen Delivery Room Air 04/30/24 20:24 04/30/24 20:00 05/01/24 00:00 Temperature 36.9 C Pulse Rate 92 92 Respiratory Rate 18 Blood Pressure 132/69 Pulse Oximetry 93 90 Oxygen Delivery Room Air 05/01/24 00:00 05/01/24 04:00 05/01/24 04:00 Temperature 36.7 C Pulse Rate 94 84 97 Respiratory Rate 18 Blood Pressure 124/60 Pulse Oximetry 90 Oxygen Delivery 05/01/24 09:33 05/01/24 09:35 Temperature Pulse Rate 84 Respiratory Rate Blood Pressure Pulse Oximetry Oxygen Delivery Room Air Intake/Output Intake/Output: Intake & Output 04/28/24 04/29/24 04/30/24 05/01/24 23:59 23:59 23:59 23:59 Intake Total 5050 3441 3790.8 440 Output Total 500 Balance 5050 3441 3790.8 -60 Meds/Results Medications: Active Medications Generic Name Dose Route Start Last Admin Trade Name Freq PRN Reason Stop Dose Admin Acetaminophen 650 mg 04/28/24 20:44 05/01/24 09:37 Acetaminophen 325 Mg Tablet PO 650 mg Q6H PRN Administration Mild Pain (1-3) or Fever Calcium Carbonate 200 mg 04/29/24 18:55 04/29/24 19:13 Calcium Carbonate (Tums) 500 Mg (200 Mg Elemental) PO 200 mg Q6H PRN Administration Indigestion Carvedilol 12.5 mg 04/28/24 21:00 05/01/24 09:33 Carvedilol 12.5 Mg Tablet PO 12.5 mg Q12HR KARIS Administration Enoxaparin Sodium 40 mg 05/02/24 09:00 Enoxaparin 40 Mg/0.4 Ml Syringe SUB-Q DAILY KARIS Hydromorphone HCl 0.5 mg 04/30/24 09:19 04/30/24 18:34 Hydromorphone Hcl Inj (*Crx) 1 Mg/Ml Syr IV PUSH 0.5 mg Q3H PRN Administration Pain Rated 4-6 Hydromorphone HCl 1 mg 04/30/24 09:19 Hydromorphone Hcl Inj (*Crx) 1 Mg/Ml Syr IV PUSH Q3H PRN Venus
--- NOTE | 2024-05-01 12:19 | PM.DS ---
DS: Admitting Diagnosis Discharge Date 05/01/2024 Admitting Diagnosis Diverticulitis DS: Discharge Diagnosis Discharge Diagnosis (1) Sepsis: Code(s): A41.9 - Sepsis, unspecified organism Status: Acute (2) Diverticulitis: Code(s): K57.92 - Diverticulitis of intestine, part unspecified, without perforation or abscess without bleeding Status: Acute (3) Dehydration: Code(s): E86.0 - Dehydration Status: Acute (4) Hypertension: Code(s): I10 - Essential (primary) hypertension Status: Acute (5) Thrombocytopenia: Code(s): D69.6 - Thrombocytopenia, unspecified Status: Acute Plan Cholelithiasis US showing gallbladder distention and common bile duct dilation Surgery consulted No GI MRCP ordered if patient needs ERCP will need transferred Sepsis: Resolved Fever, tachycardia, diverticulitis IV Fluids Rocephin/Flagyl Lactic WNL CT ABD showing diverticulitis without perforation Diverticulitis: CT ABD showing diverticulitis without perforation IV Fluids NPO with chips advance as tolerated pain control Antiemetics CT did show possible cholelithiasis ultrasound pending Rocephin/Flagyl PPI BID 04/30/2024: Thrombocytopenia 128 POA 98 04/29/2024 monitor No medication Likely secondary to infection TSH pending HX HTN: holding carvedilol has been hypotensive Code status: Full code per patient DVT prophylaxis: SCD Stress ulcer prophylaxis: Protonix 40 BID PT/OT notes: Ambulatory Disposition: Discharged home DS: Summary Hospital Course Reason for hospitalization: diverticulitis Hospital Course: Admission: This is a pleasant 63-year-old male with history of diverticulitis and hypertension who presented to the emergency department via private vehicle for evaluation of abdominal pain. The patient provides the following history. Yesterday morning at about 02:00 he developed nonradiating, sharp and shooting pain in the left lower quadrant associated with nausea, vomiting, fevers, and chills. He has had poor oral intake over the last 24 hours. He reports having normal bowel movement this morning. He has not noticed any significant alleviating factors. Pain is worse with movement and palpation. Symptoms are similar to 2 prior episodes of diverticulitis. He denies blood in mucus in the stool, dysuria, and hematuria. 04/29/2024: Assumed Care Patient still with ABD pain 7/10 LLQ, WBC 2.8, remained afebrile overnight. Will continue with NPO utnil dinner tonight and attempt clear liquid. 04/30/2024: US showing gallbladder distention and common bile duct dilation, consult placed to Surgery no GI patient will likely need MRCP for further evaluation. Patient still with ABD tenderness to LLQ and RUQ, not tolerating liquids well and reports chills and body aches. 05/01/2024: DISCHARGED Patient was tolerating full diet without ABD complaints, MRCP with no acute findings however there was a finding of bilateral lower lung lobes with pulmonary edema and patient had some reports of SOB. I discontinued IV fluids and gave a dose of 1x IV Lasix. Patient had a moderate amount of output overnight and report overall improvement in his breathing noted scant crackles at lung bases. Patient had been seen by surgery with no need for surgical intervention at this time needed, will need follow-up in their office in 2-3 weeks and colonoscopy in about 1 month once infection process has cleared. Patient with improvement to lymphocytopenia and thrombocytopenia will need follow-up cbc in 10-14 days to re-valuate if persistent refer to hematology. patient discharged home with on antibiotic therapy 2 weeks general surgery and GI. low fiber diet instructions provided. Status at Discharge Functional status at discharge: independent ambulation Overall status at discharge: patient is progressing back to baseline Time Spent with Pa
== END 2024-05-01 14:00 | disposition home or self-care (01) | DRG 720 ==
LOC: ANHED 17:14 → ANH2MED 18:17
PROVIDERS: Physician Assistant; Student in an Organized Health Care Education/Training Program; Admitting Provider General Practice; Emergency Provider Emergency Medicine; PCP Physician Assistant Medical; Visit Provider Nurse Practitioner Family
DX: A41.9 Sepsis, unspecified organism (principal); K57.32 Diverticulitis of large intestine without perforation or abscess without bleeding; E86.0 Dehydration; I10 Essential (primary) hypertension; Z20.822 Contact with and (suspected) exposure to COVID-19; K80.20 Calculus of gallbladder without cholecystitis without obstruction; E78.5 Hyperlipidemia, unspecified; R73.9 Hyperglycemia, unspecified; D69.59 Other secondary thrombocytopenia; D72.810 Lymphocytopenia; Z87.891 Personal history of nicotine dependence
CPT/HCPCS: 36415; 71045; 74177; 74183; 76376; 76705; 80048; 80053; 81001; 83605; 83690; 83735; 84443; 85025; 85027; 85055; 87040; 87637; 96365; 96375; 99285; A9270; A9577; J0696; J1170; J1836; J1885; J1940; J2060; J2405; J2470; J3475; J7030; J7120; Q9967

== ENCOUNTER 2024-05-18 07:57 | Outpatient (CLI) | payer OTHER, SELFPAY ==
[2024-05-18 08:14] LABS: Basophils Percent Auto 0.3 % (0.2-1.2); Eosinophils Absolute Auto 0.2 K/mm3 (0-0.3); Eosinophils Percent Auto 2.8 % (0-4.4); Hematocrit 52.5 % (42.0-52.0); Hemoglobin 15.9 g/dL (14.0-18.0); Immature Granulocyte Absolute 0.02 K/mm3 (0.00-0.031); Immature Granulocyte Percent A 0.3 % (0-0.5); Lymphocytes Absolute Auto 1.69 K/mm3 (0.9-3.2); Lymphocytes Percent Auto 29.4 % (18.3-44.2); Mean Corpuscular HGB Conc 30.3 g/dl (32-36); Mean Corpuscular Hemoglobin 25.8 pg (26-34); Mean Corpuscular Volume 85.2 fl (80-100); Monocytes Absolute Auto 0.7 K/mm3 (0.1-0.6); Monocytes Percent Auto 11.8 % (2.6-8.5); Neutrophils Absolute Auto 3.2 K/mm3 (1.3-6.7); Neutrophils Percent Auto 55.4 % (45.5-73.1); Platelet Count Result 191 k/mm3 (150-375); Red Blood Count 6.16 M/mm3 (4.6-6.20); Red Cell Distribution Width 21.5 % (11.5-14.5); White Blood Count 5.8 K/mm3 (4.5-10.0)
== END 2024-05-18 07:58 | disposition home or self-care (01) ==
LOC: ANHLAB 07:59
PROVIDERS: PCP Physician Assistant Medical; Visit Provider Surgery
DX: D72.810 Lymphocytopenia (principal)
CPT/HCPCS: 36415; 85025

== ENCOUNTER 2024-06-22 08:11 | Emergency (ER) | payer OTHER, SELFPAY ==
[2024-06-22 08:46] VITALS: BP 174/86; PULSE 71; RESP 16; TEMP 36.9; O2SAT 99
[2024-06-22] MEDS: TETANUS,DIPHTHERIA,AC PERTUSSIS ADULT (0.5 ML) BOOSTRIX IM (09:08)
--- NOTE | 2024-06-22 09:51 | ED.WOUNDLAC ---
HPI - Wound/Laceration General Chief Complaint: Wound/Laceration Stated Complaint: Cut On Right Arm Time Seen by Provider: 06/22/24 09:52 Source: patient, RN notes reviewed and old records reviewed Mode of arrival: ambulatory Limitations: no limitations History of Present Illness HPI narrative: patient presents with complaints of laceration to right forearm. He was at work, cut self on a metal band. Denies other injury and trauma. There is no active bleeding on arrival. He he is unsure of last tetanus, this will be updated today Related Data Allergies Allergy/AdvReac Type Severity Reaction Status Date / Time ELVIA Inhibitors AdvReac Intermediate Cough Verified 06/22/24 08:50 Review of Systems Review of Systems: All systems reviewed & are unremarkable except as noted in HPI and below Constitutional: Constitutional: Reports no additional constitutional complaints ENT: Reports system reviewed and no additional complaints, except as documented Cardiovascular: Cardiovascular: Reports no additional cardiovascular complaints Respiratory: Respiratory: Reports no additional respiratory complaints Gastrointestinal: Gastrointestinal: Reports no additional gastrointestinal complaints Integumentary/Breasts: Skin/Breast: Reports system reviewed and no additional complaints, except as docu and Reports as per HPI Comments: laceration to right arm [facility] Past Medical History Medical History Dyslipidemia Hypertension Surgical History Surgical History History of back surgery Social History Social History Social History: Healthcare power of managing attorney: Demarco Curtis, daughter. Other contacts: Lala Price (spouse) and Nolberto Price (son). Code status: Full code. Smoking packs per day: 1 Smoking cigarettes per day: 20.0 Smoking status: Former smoker Tobacco type: cigarettes Additional smoking assessment comments: smoked 30 years ago Alcohol intake: never Substance use: never Substance use type: does not use Do You Feel Safe in your Home?: Yes Lack of Transportation: No Lack of Food: Never True Current Housing: I Have Housing Concerned About Future Housing: No Difficulty Paying Gas/Electric Bills: No Difficulty Paying for Meds: No Currently Unemployed: No Education: High School Diploma/GED Difficulty w/ Childcare or Family Care: No Living arrangements: with family Additional living arrangements comments: Lives with in [place]. Spiritual care concerns: No Comments At the time of my signature, I reviewed and agree with the nursing past medical, surgical, social, and family history. There is no relevant family history pertinent to the patient complaint. Exam Const: General: cooperative, no acute distress, alert and awake Orientation/consciousness: oriented to person, oriented to place and oriented to time HENMT: Head: normal to inspection Resp: Effort & Inspection: normal respiratory effort and able to speak in complete sentences Auscultation: clear to auscultation bilaterally, no crackles, no rales, no rhonchi and no wheezes Cardio: Palpation: normal PMI Rate: regular rate Rhythm: regular rhythm Heart sounds: S1 normal heart sound present and S2 normal heart sound present Skin: General skin exam: laceration ( right forearm, 5 cm, linear, no active bleeding) Neuro: General: oriented to person, oriented to place and oriented to time Cranial nerves: Yes CN's II-XII intact bilaterally Psych: Appearance: grossly normal Thought process: Normal thought process present Insight: Good insight present (Psych) Judgement: Good judgement present (Psych) Course Course Level of Care: Express Care Visit Vital Signs Vital signs: Vital Signs Temperature 98.4 F 06/22/24 08:46 Pulse Rate 71 09/
== END 2024-06-22 10:43 | disposition home or self-care (01) ==
PROVIDERS: Emergency Provider Nurse Practitioner Family; PCP Physician Assistant Medical
DX: S51.811A Laceration without foreign body of right forearm, initial encounter (principal); W45.8XXA Other foreign body or object entering through skin, initial encounter; Y99.0 Civilian activity done for income or pay; Z23 Encounter for immunization; Z87.891 Personal history of nicotine dependence; I10 Essential (primary) hypertension; E78.5 Hyperlipidemia, unspecified
CPT/HCPCS: 12002; 90471; 90715; 99212; G0463

== ENCOUNTER 2024-07-01 03:12 | Day surgery (SDC) | payer OTHER, SELFPAY ==
[2024-06-09 12:45] VITALS: BMI 27.9
[2024-07-01 09:20] VITALS: BP 143/87; PULSE 89; RESP 18; TEMP 36.7; O2SAT 98
[2024-07-01] MEDS: LACTATED RINGERS 1,000 ML 150 ML IV CONT (09:32)
--- NOTE | 2024-07-01 09:40 | P.PNAN_ITS ---
Anes - Initial Pre Proc Eval Procedure: Operation Date: 07/01/24 10:30 Proposed Procedures p Colonoscopy - Harshad Russell MD Date/Time: 07/01/24 09:40 Surgeon: Harshad Russell MD Pre Op Diagnosis: Diverticulitis Patient Data Age: 64 Gender: M Height: 1.7 m Weight: 79 kg Last Vital Signs Temp 98.1 F 07/01/24 09:20 Pulse 89 07/01/24 09:20 Resp 18 07/01/24 09:20 BP 143/87 H 07/01/24 09:20 Pulse Ox 98 07/01/24 09:20 O2 Del Method Room Air 07/01/24 09:20 Allergies Allergy/AdvReac Type Severity Reaction Status Date / Time ELVIA Inhibitors AdvReac Intermediate Cough Verified 07/01/24 09:18 Home Medications Medication Instructions Recorded Confirmed Type carvedilol 12.5 mg tablet (Coreg) 12.5 mg PO Q12H #180 tabs 03/04/24 07/01/24 Rx Patient hx anesthesia problems: none Family hx anesthesia problems: none Results Review: All pre-operative results and documents have been reviewed as part of the pre- operative evaluation. PMFSH Past Medical History Medical History Dyslipidemia Hypertension Surgical History Surgical History History of back surgery Social History Social History Social History: Healthcare power of windmill mechanic: Demarco Curtis, daughter. Other contacts: Lala Price (spouse) and Nolberto Price (son). Code status: Full code. Smoking packs per day: 1 Smoking cigarettes per day: 20.0 Smoking status: Former smoker Tobacco type: cigarettes Additional smoking assessment comments: smoked 30 years ago Alcohol intake: never Substance use: never Substance use type: does not use Do You Feel Safe in your Home?: Yes Lack of Transportation: No Lack of Food: Never True Current Housing: I Have Housing Concerned About Future Housing: No Difficulty Paying Gas/Electric Bills: No Difficulty Paying for Meds: No Currently Unemployed: No Education: High School Diploma/GED Difficulty w/ Childcare or Family Care: No Living arrangements: with family Additional living arrangements comments: Lives with in [place]. Spiritual care concerns: No Anes - Eval Final PreProcedure Day of Procedure 07/01/24 09:40 Patient weight: normal Heart: regular rate and rhythm Lungs: clear to auscultation Airway: Mallampati scale class II Neurological: alert and oriented Last oral intake: >/= 8 hours ASA classification: II Emergent: no Anesthetic plan: proceed Anesthesia type and monitoring: general GIVS and standard monitoring Results Review: All pre-operative results and documents have been reviewed as part of the pre- operative evaluation. HTN, active wt certified surgical tech/first assistant, no cp or sob. Informed Consent: The patient's anesthetic plan and its attendant risks and benefits were discussed with the patient/family/POA. Questions were solicited and answers provided to the satisfaction of the patient/family/POA.
--- NOTE | 2024-07-01 10:29 | PM.HPGS ---
History of Present Illness History of Present Illness Consent: Risks, benefits, and alternatives have been discussed and questions answered. Patient agrees to proceed with procedure. Chief complaint: Diverticulitis Narrative: Josh Price is a 64 year old male with last colonoscopy 7 years ago, had diverticulitis treated medically. Review of Systems Review of Systems: All systems reviewed & are unremarkable except as noted in HPI and below PMFSH Past Medical History Medical History (Updated 07/01/24 @ 10:31 by Harshad Russell MD) Dyslipidemia History of diverticulitis of colon Hypertension Surgical History Surgical History History of back surgery Social History Social History Social History: Healthcare power of assistant city attorney: Demarco Curtis, daughter. Other contacts: Lala Dee (spouse) and Nolberto Dee (son). Code status: Full code. Smoking packs per day: 1 Smoking cigarettes per day: 20.0 Smoking status: Former smoker Tobacco type: cigarettes Additional smoking assessment comments: smoked 30 years ago Alcohol intake: never Substance use: never Substance use type: does not use Do You Feel Safe in your Home?: Yes Lack of Transportation: No Lack of Food: Never True Current Housing: I Have Housing Concerned About Future Housing: No Difficulty Paying Gas/Electric Bills: No Difficulty Paying for Meds: No Currently Unemployed: No Education: High School Diploma/GED Difficulty w/ Childcare or Family Care: No Living arrangements: with family Additional living arrangements comments: Lives with in [place]. Spiritual care concerns: No Meds Home Medications and Allergies Home Medications Medication Instructions Recorded Confirmed Type carvedilol 12.5 mg tablet (Coreg) 12.5 mg PO Q12H #180 tabs 03/04/24 07/01/24 Rx Allergies Allergy/AdvReac Type Severity Reaction Status Date / Time ELVIA Inhibitors AdvReac Intermediate Cough Verified 07/01/24 09:18 Vital Signs Vital Signs - 24 hr 07/01/24 09:20 Temperature 98.1 F Pulse Rate 89 Respiratory Rate 18 Blood Pressure 143/87 H Pulse Oximetry 98 Oxygen Delivery Room Air Exam Const: General: comfortable and no acute distress HENMT: Face/Nose/Sinus: Normal nares present Eyes: General: appearance normal, both eyes and all related structures Neck: Neck: no JVD Resp: Auscultation: clear to auscultation bilaterally Cardio: Rate: regular rate Rhythm: regular rhythm GI: Inspection: non-distended GI Palp: Yes Soft to palpation Skin: General skin exam: normal color Neuro: General: gait normal Speech: normal speech Extrem: General: normal to inspection Psych: Mental Status: mental status grossly normal Assessment and Plan Assessment and plan (1) History of diverticulitis of colon: Code(s): Z87.19 - Personal history of other diseases of the digestive system Status: Acute Assessment and Plan: colonoscopy
[2024-07-01 10:47] VITALS: BP 109/50; PULSE 84; RESP 20; O2SAT 93
[2024-07-01 10:57] VITALS: BP 131/67; PULSE 80; RESP 20; O2SAT 95
[2024-07-01 11:07] VITALS: BP 136/71; PULSE 80; RESP 23; O2SAT 98
== END 2024-07-01 11:15 | disposition home or self-care (01) ==
PROVIDERS: PCP Physician Assistant Medical; Referring Provider Surgery; Visit Provider Internal Medicine Gastroenterology
PROC: 0DJD8ZZ Inspection of Lower Intestinal Tract, Via Natural or Artificial Opening Endoscopic (ICD-10-PCS; CPT 45378; principal; 2024-07-01 10:30)
DX: Z09 Encounter for follow-up examination after completed treatment for conditions other than malignant neoplasm (principal); K57.30 Diverticulosis of large intestine without perforation or abscess without bleeding; Z87.19 Personal history of other diseases of the digestive system; I10 Essential (primary) hypertension; E78.5 Hyperlipidemia, unspecified; Z87.891 Personal history of nicotine dependence
CPT/HCPCS: 45378; J2003; J2405; J2704; J7120